=== PATIENT | female | born 1965 | race African-American/Black ===

== ENCOUNTER 2021-07-02 09:27 | Day surgery (SDC) | payer MEDICARE | END 2021-07-02 09:55 | disposition home or self-care (01) | LOC: SDC-PAIN 09:27 | PROVIDERS: ATTEND Psychiatry & Neurology Pain Medicine | DX: Z53.9 Procedure and treatment not carried out, unspecified reason (principal); E11.9 Type 2 diabetes mellitus without complications; M25.561 Pain in right knee; M25.562 Pain in left knee | CPT/HCPCS: 82947 ==